=== PATIENT | male | born 1980 | race Caucasian/White ===

== ENCOUNTER 2020-10-14 10:50 | Emergency (ER) | payer SELFPAY ==
[2020-10-14] MEDS ORDERED: FLUORESCEIN SODIUM 1 STRIP STRIP ONE (12:10)
[2020-10-14] MEDS ORDERED: NA BORATE/BORIC AC/H2O/NACL 120 ML OPHTH IRRIG SOLN ONE (12:10)
[2020-10-14] MEDS ORDERED: TETRACAINE HCL 0.5% 4 ML OPHTH SOLN ONE (12:10)
[2020-10-14] MEDS ORDERED: ERYTHROMYCIN BASE 0.5% OPHTH OINT 1 GM TUBE ONE (12:35)
== END 2020-10-14 12:58 | disposition home or self-care (01) ==
LOC: EDH 10:50
DX: S00.211A Abrasion of right eyelid and periocular area, initial encounter (principal); Z72.0 Tobacco use; X58.XXXA Exposure to other specified factors, initial encounter; Y93.89 Activity, other specified; Y92.89 Other specified places as the place of occurrence of the external cause; Y99.8 Other external cause status